=== PATIENT | female | born 1945 ===

== ENCOUNTER 2017-06-21 10:00 | Inpatient (IN) | payer OTHER ==
[~2017-06-21] VITALS: Ht 165.1 cm; Wt 113.4 kg
[2017-11-22] MEDS ORDERED: LANTUS SOL100 UNIT/1 (14:04)
[2017-11-22] MEDS ORDERED: LOSARTAN-HCTZ1 EAC1 PO (14:05)
[2017-11-22] MEDS ORDERED: SYNTHROID150 MCG PO (14:05)
[2017-11-22] MEDS ORDERED: FORTAMET1000 MG PO (14:05)
[2017-11-29] MEDS ORDERED: COLACE100 MG PO ×3 (09:32→09:35)
[2017-11-29] MEDS ORDERED: PERCOCET 5-3251 EACH PO (09:33)
[2017-11-29] MEDS ORDERED: CLONAZEPAM1 MG PO (09:33)
== END 2017-11-30 14:57 | disposition home or self-care (01) | DRG 472 ==
LOC: O/R 11-29 04:41 → PED 11-29 04:41 → SURG 11-29 07:00 → PED 11-29 10:20 → SURG 11-29 12:00 → PED 11-30 14:57
PROVIDERS: Orthopaedic Surgery Orthopaedic Surgery of the Spine
PROC: 0RG20A0 Fusion of 2 or more Cervical Vertebral Joints with Interbody Fusion Device, Anterior Approach, Anterior Column, Open Approach (ICD-10-PCS; 2017-11-29)
PROC: 0RT30ZZ Resection of Cervical Vertebral Disc, Open Approach (ICD-10-PCS; principal; 2017-11-29 07:00)
DX: M47.12 Other spondylosis with myelopathy, cervical region (principal); M50.023 Cervical disc disorder at C6-C7 level with myelopathy; I10 Essential (primary) hypertension; E11.9 Type 2 diabetes mellitus without complications; E03.8 Other specified hypothyroidism

== ENCOUNTER 2018-12-04 10:00 | Inpatient (IN) | payer OTHER ==
[~2018-12-04] VITALS: Ht 152.4 cm; Wt 120.2 kg
[~2018-12-04 10:00] MED LIST: CLONAZEPAM1 MG PO; COLACE100 MG PO; FORTAMET1000 MG PO; LANTUS SOL100 UNIT/1; LOSARTAN-HCTZ1 EAC1 PO; PERCOCET 5-3251 EACH PO; SYNTHROID150 MCG PO
[2018-12-11] MEDS ORDERED: NEURONTIN800 MG PO (10:18)
[2018-12-11] MEDS ORDERED: COLACE100 MG PO (10:18)
[2018-12-11] MEDS ORDERED: AMOX-CLAV 875-1 EACH PO (10:19)
[2018-12-11] MEDS ORDERED: PERCOCET 5-3251 EACH PO (10:20)
[2018-12-11] MEDS ORDERED: CLONAZEPAM0.5 MG PO (10:20)
== END 2018-12-12 17:00 | disposition home or self-care (01) | DRG 455 ==
LOC: O/R 12-11 05:00 → SURG 12-11 05:00 → SURH 12-11 10:00 → SURG 12-11 13:42 → SURH 12-11 21:00 → SURG 12-12 17:00
PROVIDERS: ADMIT Orthopaedic Surgery Orthopaedic Surgery of the Spine
PROC: 0SG10A0 Fusion of 2 or more Lumbar Vertebral Joints with Interbody Fusion Device, Anterior Approach, Anterior Column, Open Approach (ICD-10-PCS; 2018-12-11)
PROC: 0SG00AJ Fusion of Lumbar Vertebral Joint with Interbody Fusion Device, Posterior Approach, Anterior Column, Open Approach (ICD-10-PCS; 2018-12-11)
PROC: 0ST20ZZ Resection of Lumbar Vertebral Disc, Open Approach (ICD-10-PCS; 2018-12-11)
PROC: 07DS3ZZ Extraction of Vertebral Bone Marrow, Percutaneous Approach (ICD-10-PCS; 2018-12-11)
PROC: 4A12X4Z Monitoring of Cardiac Electrical Activity, External Approach (ICD-10-PCS; 2018-12-11)
PROC: 0SG1071 Fusion of 2 or more Lumbar Vertebral Joints with Autologous Tissue Substitute, Posterior Approach, Posterior Column, Open Approach (ICD-10-PCS; principal; 2018-12-11 21:00)
DX: M47.26 Other spondylosis with radiculopathy, lumbar region (principal); M41.86 Other forms of scoliosis, lumbar region; M48.062 Spinal stenosis, lumbar region with neurogenic claudication; M51.16 Intervertebral disc disorders with radiculopathy, lumbar region; E11.9 Type 2 diabetes mellitus without complications; I10 Essential (primary) hypertension; E03.8 Other specified hypothyroidism